=== PATIENT | female | born 1955 | race Two or more races ===

== ENCOUNTER 2021-11-23 12:49 | Inpatient (IN) | payer OTHER ==
[~2021-11-23] VITALS: Ht 154.9 cm; Wt 63.5 kg
--- NOTE | 2021-11-23 13:57 | NUR ---
URINE COLLECTED AND SENT TO LAB
[2021-11-23 14:02] LABS: BASOPHILS % (AUTO) 0.5 % (0.0-2.0); EOSINOPHILS % (AUTO) 0.1 % (0.0-6.0); HEMATOCRIT 43 % (33-45); HEMOGLOBIN 13.9 g/dL (11.5-14.8); LYMPHOCYTES # (AUTO) 1.7 K/uL (0.8-4.8); LYMPHOCYTES % (AUTO) 26.4 % (20.0-44.0); MEAN CORPUSCULAR HGB CONC 32 g/dl (31.0-36.0); MEAN CORPUSCULAR VOLUME 85 fL (82-100); MONOCYTES # (AUTO) 0.3 K/uL (0.1-1.30); MONOCYTES % (AUTO) 5.1 % (2.0-12.0); NEUTROPHILS # (AUTO) 4.3 K/uL (1.8-8.9); NEUTROPHILS % (AUTO) 67.9 % (43.0-81.0); PLATELET COUNT (AUTO) 340 K/uL (150-450); RED BLOOD CELL COUNT(AUTO) 5.06 MIL/uL (4.0-5.2); WHITE BLOOD COUNT (AUTO) 6.3 K/uL (4.3-11.0)
[2021-11-23 14:25] LABS: ALANINE AMINOTRANSFERASE 33 U/L (12-78); ALBUMIN 4.4 g/dL (3.4-5.0); ALKALINE PHOSPHATASE 80 U/L (46-116); ASPARTATE AMINOTRANSFERASE 27 U/L (15-37); BILIRUBIN,DIRECT 0.2 mg/dL (0.0-0.2); BILIRUBIN,TOTAL 0.8 mg/dL (0.2-1.0); CALCIUM, SERUM 10.2 mg/dL (8.5-10.1); CARBON DIOXIDE 28 mmol/L (21-32); CHLORIDE 102 mmol/L (98-107); CREATININE 0.8 mg/dL (0.6-1.3); GLUCOSE 109 mg/dL (74-106); POTASSIUM 4.6 mmol/L (3.5-5.1); SODIUM SERUM 139 mmol/L (136-145); UREA NITROGEN, BLOOD 19 mg/dL (7-18)
[2021-11-23] MEDS ORDERED: ASPIRIN 81 MG TAB.CHEW PO ONE (15:00)
--- NOTE | 2021-11-23 15:00 | NUR ---
GAVE VERBAL AUTH TO STAY FOR [facility]BSERVATION [facility] Addendum: 11/23/21 at 1522 by GEOVANNY FAX NUMBER [phone], TEL# [phone] ext [phone]
[2021-11-23] MEDS ORDERED: ASPIRIN 81 MG TAB.CHEW ONE (15:02)
[2021-11-23 15:03] LABS: BILIRUBIN,URINE NEGATIVE (NEGATIVE); COLOR,URINE YELLOW (YELLOW); LEUKOCYTE ESTERASE ,URINE NEGATIVE (NEGATIVE); NITRITE, URINE NEGATIVE (NEGATIVE); PH,URINE 5.5 (5.0-8.0); PROTEIN,URINE NEGATIVE (NEGATIVE); UGLUCOSE NEGATIVE (NEGATIVE); UROBILINOGEN,URINE 0.2 EU/dL (0.2)
--- NOTE | 2021-11-23 15:15 | NUR ---
DR. ARAIZA SPEAKING WITH DR. CHANG.
--- NOTE | 2021-11-23 15:24 | NUR ---
COVID SWAB DONE AND SENT TO LAB
[2021-11-23 15:49] LABS: BACTERIA,URINE None seen /HPF (None Seen); SQUAMOUS EPITHELIAL CELL,UR 0-2 /HPF (None Seen); WBC,URINE 0-2 /HPF (0-3)
--- NOTE | 2021-11-23 19:57 | NUR ---
RECEIVED REPORT FROM JONO DIAZ. PATIENT IS AAOX4. ABLE TO MAKE NEEDS KNOWN. PATIENT CAME EARLIER BECAUSE SHE HAD SLURRING OF SPEECH BUT IMPROVING AT THE MOMENT. PATIENT HAS PERIPHERAL LINE ON RIGHT AC G20. ATTACHED TO MONITOR. VITALS CHECKED.
[2021-11-23] MEDS ORDERED: IV NS 0.9% 1,000 ML IV PRN (21:30)
[2021-11-23] MEDS ORDERED: ONDANSETRON HCL/PF 4 MG/2 ML VIAL IVP PRN (21:30)
[2021-11-23] MEDS ORDERED: ACETAMINOPHEN 325 MG TABLET PO PRN (21:30)
--- NOTE | 2021-11-23 21:30 | NUR ---
INSTRUMENTS SALES REPRESENTATIVE AT BED SIDE
--- NOTE | 2021-11-23 21:30 | NUR ---
Medardo santoyo in [facility] - 11/23/21 at 2147 by HERMAN LIV
--- NOTE | 2021-11-23 21:44 | NUR ---
GLENNY TECH AT BED SIDE TO PERFORM GLENNY FOR CAROTID
[2021-11-23 21:56] LABS: CALCIUM, SERUM 9.7 mg/dL (8.5-10.1); CREATININE 0.7 mg/dL (0.6-1.3); POTASSIUM 3.7 mmol/L (3.5-5.1)
[2021-11-23 22:09] LABS: ALBUMIN 4.1 g/dL (3.4-5.0); BILIRUBIN,TOTAL 0.8 mg/dL (0.2-1.0); THYROID STIMULATING HORMONE 2.107 uIU/mL (0.358-3.74); TOTAL PROTEIN, SERUM 8.3 g/dL (6.4-8.2)
[2021-11-23] MEDS ORDERED: ATORVASTATIN 10 MG TABLET ONE (22:49)
[2021-11-23] MEDS: ATORVASTATIN 10 MG TABLET PO SCH (23:00)
--- NOTE | 2021-11-23 23:02 | NUR ---
PATIENT REFUSED TO TAKE LIPITOR COZ PT CLAIMED THAT SHE DOESNT LIKE THE EFFECT OF IT. SHE EXPERIENCED WEAKNESS AND TIRENESS. JIMMIE LEMA MADE AWARE THROUGH TEXT.
--- NOTE | 2021-11-24 04:31 | NUR ---
MARKET STALL VENDOR AT BEDSIDE
[2021-11-24 05:19] LABS: BASOPHILS % (AUTO) 0.5 % (0.0-2.0); HEMATOCRIT 41 % (33-45); HEMOGLOBIN 13.4 g/dL (11.5-14.8); LYMPHOCYTES # (AUTO) 3.1 K/uL (0.8-4.8); MEAN CORPUSCULAR HGB CONC 33 g/dl (31.0-36.0); MEAN CORPUSCULAR VOLUME 86 fL (82-100); MONOCYTES # (AUTO) 0.6 K/uL (0.1-1.30); MONOCYTES % (AUTO) 9.1 % (2.0-12.0); NEUTROPHILS # (AUTO) 3.3 K/uL (1.8-8.9); NEUTROPHILS % (AUTO) 46.4 % (43.0-81.0); PLATELET COUNT (AUTO) 344 K/uL (150-450); RED BLOOD CELL COUNT(AUTO) 4.75 MIL/uL (4.0-5.2); WHITE BLOOD COUNT (AUTO) 7.1 K/uL (4.3-11.0)
[2021-11-24 05:44] LABS: CALCIUM, SERUM 9.7 mg/dL (8.5-10.1); CREATININE 0.7 mg/dL (0.6-1.3); MAGNESIUM 2.2 mg/dL (1.8-2.4); PHOSPHORUS 4.7 mg/dL (2.5-4.9); POTASSIUM 4.3 mmol/L (3.5-5.1)
--- NOTE | 2021-11-24 07:20 | NUR ---
RECEIVED PT PT FROM SILVIA RN PT AWAKE AND ALERT NO DISTRESS SKIN WARM AND DRY TO TOUCH
--- NOTE | 2021-11-24 07:40 | NUR ---
DR GONZALES AT BEDSIDE FOR EVAL
--- NOTE | 2021-11-24 08:00 | NUR ---
REPORT GIVEN TO SUMMER FOR PATO
--- NOTE | 2021-11-24 08:04 | NUR ---
TO ROOM 310 VIA GARNY STABLE VS
--- NOTE | 2021-11-24 08:49 | NUR ---
PT TRANSFERRED TO 3W TELE FLOOR, PT ABLE TO AMBULATE TO HER BED ON HER OWN. PT RECIEVED BY JONO WHEELER.
--- NOTE | 2021-11-24 09:00 | NUR ---
OFFSHORE DIVEREX ASSISTANT/PROGRAM DIRECTOR NOTE ADMITTED A 66 Y/O FEMALE PATIENT AT AROUND 0845 VIA GURNEY FROM EMERGENCY DEPT. WITH C/C OF DIZZINESS, AND UNSTEADY GAIT WITH ADMITING DX OF R/O CVA. PATIENT IS ALERT AND ORIENTED X4, ABLE TO VERBALIZE NEEDS WITH THE STAFFS. AFEBRILE AND NOT ON ANY FORM OF ACUTE DISTRESS. BREATHING EVEN AND NONLABORED. NO C/O COUGH, SORE THROAT, CHILLS OR ABDOMINAL PAIN. EXPLAINED ADMISSION PROCESS. BODY AND NEURO ASSESSMENT DONE WITH NO DEFICIT NOTED. PATIENT IS CONTINENT X2. NOTED WITH IV ACCESS ON R ANTECUBITAL G20 BUT WAS ALREADY INFILTRATED. OFFERED TO REINSERT IV LINE BUT PATIENT REFUSED DESPITE EXPLAINING BENEFIT OF HAVING ONE. NOTIFIED DR. BOBBY ABOUT PATIENT'S ARRIVAL AND REFUSAL OF REINSERTION. MEDICATED ORDERED. OFFERED AND ENCOURAGED FLUIDS TOLERATED. SAFETY MEASURES IN PLACED. KEPT BED IN LOCKED AND IN LOW POSITION TO REDUCE INJURY. ADVISED TO USE THE CALL LIGHT WHEN IN NEED OF ASSISTANCE.
[2021-11-24] MEDS: ASPIRIN 81 MG TAB.CHEW PO SCH (09:52)
--- NOTE | 2021-11-24 16:45 | NUR ---
UTILIZATION MANAGER NOTE WITH INFILTRATED IV ACCESS. IV REMOVED AND COVERED WITH DRY DRESSING. DRY AND INTACT. TOLERATED WELL. REFUSED TO HAVE ANOTHER IV ACCESS PLACED. PATIENT HAVE NO IV MEDS OR FLUID ORDER. DR. BOBBY NOTIFIED. AWARE OF PATIENT'S REFUSAL.
--- NOTE | 2021-11-24 16:50 | NUR ---
PSYCHIATRIC AIDE INSTRUCTOR NOTE SEEN BY DR. FRANCOIS
--- NOTE | 2021-11-24 17:02 | NUR ---
SS CONSULT RECEIVED FOR CODE STROKE AND DC PLAN. SW WILL FOLLOW UP AT A LATER TIME.
--- NOTE | 2021-11-24 18:53 | NUR ---
SLIP CASTER CLOSING NOTES PATIENT SITTING IN BED, ALERT AND ORIENTED X4. ABLE TO MAKE NEEDS KNOWN. ON ROOM AIR WITH EQUAL AND UNLABORED BREATHING EVEN AND NON LABORED. NO SOB/WHEEZING NOTED. NO C/O PAIN OR DISCOMFORT. NO IV ACCESS, HOSPITALIST AWARE. SAFETY MEASURES IN PLACE. KEPT BED IN LOCKED AND IN LOW POSITION TO REDUCE INJURY. CALL LIGHT WITHIN REACH AT ALL TIMES. Addendum: 11/24/21 at 1900 by TANIA MONROY RN ENODRSED TO NEXT SHIFT FOR CONTINUTIY OF CARE. PATIENT WITH NO SIGNS AND SYMPTOMS OF MOTOR OR SENSORY DEFICIT. ON NEURO CHECK. ENDORSED ACCORDINGLY.
--- NOTE | 2021-11-24 19:25 | NUR ---
ENGAGEMENT MANAGER OPENING NOTE RECEIVED PATIENT IN BED; AWAKE, ALERT AND ORIENTED X 4. BREATHING EVEN AND UNLABORED. ON ROOM AIR; TOLERATING WELL. NOT IN ANY FORM OF RESPIRATORY DISTRESS. NO C/O ANY PAIN OR DISCOMFORT AT THIS TIME. ON TELEMETRY MONITORING WITH CURRENT READING OF SINUS RHYTHM HR-65 BPM. ABLE TO MAKE NEEDS KNOWN. FALL AND SAFETY MEASURES IMPLEMENTED: CALL LIGHT AND TABLE WITHIN REACH, SIDE RAILS UP X 2, BED IN LOWEST LOCKED POSITION. WILL CONTINUE TO MONITOR.
[2021-11-24 20:00] VITALS: BP 155/80
[2021-11-24] MEDS: ATORVASTATIN 10 MG TABLET PO SCH (21:43)
--- NOTE | 2021-11-24 21:43 | NUR ---
RN NOTE ATORVASTATIN 20 MG 2 TABS PO HELD PER PATIENT'S REQUEST.
[2021-11-25] VITALS: BP 126/81
--- NOTE | 2021-11-25 06:55 | NUR ---
POST ANESTHESIA CARE UNIT NURSE CLOSING NOTE PATIENT IN BED; AWAKE, A/O X 4. STABLE ON ROOM AIR. RESPIRATION EVEN AND UNLABORED. IN NO ACUTE DISTRESS. DENIES ANY PAIN OR DISCOMFORT AT THIS TIME. ON TELE MONITOR WITH CURRENT READING OF SINUS RHYTHM HR-[address] ELEVATION. ALL NEEDS ATTENDED. FALL AND SAFETY MEASURES IN PLACE: CALL LIGHT AND TABLE WITHIN REACH, SIDE RAILS UP X 2, BED IN LOWEST LOCKED POSITION. ENDORSED TO ALIA DE LA CRUZ FOR PATO.
--- NOTE | 2021-11-25 07:36 | NUR ---
NETWORK SUPPORT TECHNICIAN OPENING NOTES PATIENT LAYING IN BED, A/O X 4, ABLE TO MAKE NEEDS KNOWN, TOLERATING WELL ON ROOM AIR WITH NO S/S RESPIRATORY DISTRESS. NO COMPLAINTS OF PAIN OR DISCOMFORT AT THIS TIME. TELE MONITOR IN PLACE READING NSR 68. SAFETY MEASURES IN PLACE: BED IN LOWEST LOCKED POSITION, SIDE RAILS UP X 2, CALL LIGHT WITHIN REACH. WILL CONTINUE TO MONITOR.
[2021-11-25 08:00] VITALS: BP 146/67
[2021-11-25] MEDS: ASPIRIN 81 MG TAB.CHEW PO SCH (08:50)
[2021-11-25] MEDS ORDERED: ASPI-1169 PO (10:32)
--- NOTE | 2021-11-25 11:11 | NUR ---
ICE GRINDERMOTOR POOL DRIVER NOTES PATIENT MADE AWARE OF MD DISCHARGE ORDERS AND INSTRUCTIONS AND VERBALIZED UNDERSTANDING. PATIENT SIGNED MD DISCHARGE INSTRUCTIONS SHEET AND BELONGINGS LIST. ID BANDS AND TELE MONITOR REMOVED. EDUCATIONAL MATERIALS PROVIDED. PATIENT TRANSFERRED OFF OF UNIT VIA WHEELCHAIR ACCOMPANIED BY RN STUDENT, STABLE AT TIME OF DISCHARGE.
[2021-11-27 06:06] LABS: *SPE ALPHA-1-GLOBULIN 0.2 g/dL (0.0-0.4); *SPE ALPHA-2-GLOBULIN 0.8 g/dL (0.4-1.0); *SPE BETA GLOBULIN 1.2 g/dL (0.7-1.3); *SPE M-SPIKE Not Observed g/dL (Not Observed)
== END 2021-11-25 11:20 | disposition home or self-care (01) | DRG 45 ==
LOC: ER 12:58 → TRANSITION 22:39 → TELE 11-24 07:57
PROVIDERS: ADMIT Nurse Practitioner Acute Care; ATTEND Nurse Practitioner Acute Care
DX: I63.9 Cerebral infarction, unspecified (principal); E86.0 Dehydration; E83.52 Hypercalcemia; R29.700 NIHSS score 0; Z20.822 Contact with and (suspected) exposure to COVID-19; R26.89 Other abnormalities of gait and mobility; Z87.891 Personal history of nicotine dependence
CPT/HCPCS: 36415; 70450-TC; 70551-TC; 71045-TC; 80048-TC; 80053-TC; 80061-TC; 80076-TC; 81001; 83735-TC; 83880; 84100-TC; 84155; 84165; 84443-TC; 84484-TC; 85025-TC; 85652-TC; 85730-TC; 87081-TC; 92526; 92611-TC; 93307-TC; 93880-TC; 97110-TC; 97112-TC; 97116-TC; C9803; G0378